=== PATIENT | male | born 1995 | race Caucasian/White ===

== ENCOUNTER 2020-07-14 14:11 | Emergency (ER) | payer OTHER, SELFPAY ==
[2020-07-14 14:19] VITALS: BP 150/82; PULSE 91; RESP 18; TEMP 37.3; O2SAT 98; BMI 29.5
--- NOTE | 2020-07-14 15:00 | W.ED.DENTAL ---
HPI - Dental/Oral General: Chief complaint: Dental/Oral Stated complaint: tooth infection/getting closer to eye. Time Seen by Provider: 07/14/20 14:31 History of Present Illness: HPI Narrative: 25-year-old male presents to the emergency room complaining of jaw pain. He seen a dentist yesterday was started on antibiotics. Is a low-grade fever on arrival here he got lightheaded and dizzy and had near syncopal episode this morning. No vomiting or diarrhea. MD Complaint: tooth pain Onset (ago): hour(s) Duration: constant Severity: mild Exacerbating factors: nothing Context: history of dental caries Associated symptoms: Reports fever(s) (Low-grade 991 here in the ER); Denies ear or mastoid pain Treatment prior to arrival: none Review of Systems Const: Reports: fever(s) (Low-grade 991 here in the ER) ENMT: Denies: ear or mastoid pain Card: Denies: chest pain, edema, dyspnea on exertion or orthopnea Resp: Denies: dyspnea, productive cough or non-productive cough GI: Denies: abdominal pain, nausea, vomiting, hematemesis, coffee ground emesis, diarrhea, constipation, bloating, hematochezia or melena : Denies: flank pain, dysuria, urinary frequency or urinary urgency Skin/Breast: Denies: rash or pruritus Physical Exam Const: COMMON NORMALS: no acute distress GENERAL APPEARANCE: cooperative and comfortable ORIENTATION/CONSCIOUSNESS: Yes awake, Yes oriented to person, Yes oriented to place and Yes oriented to time HENMT: COMMON NORMALS: normocephalic, atraumatic and hearing grossly normal bilaterally HEAD & SCALP: normocephalic and atraumatic Neck/C-Spine: COMMON NORMALS: no JVD Resp: COMMON NORMALS: normal respiratory effort, No retractions, No use of accessory muscles and clear to auscultation bilaterally AUSCULTATION: clear to auscultation bilaterally Cardio: COMMON NORMALS: no JVD, regular rate, regular rhythm and No murmurs present (Cardio) RATE: regular rate RHYTHM: regular rhythm GI: COMMON NORMALS: Soft to palpation and No hepatosplenomegaly present AUSCULTATION: Yes normoactive bowel sounds PALPATION: Yes Soft to palpation, No Tenderness to palpation present (GI), No Guarding due to palpation present (GI) and Yes No hepatosplenomegaly present Extremity: COMMON NORMALS: normal to inspection, capillary refill normal, no clubbing, cyanosis or edema, no calf tenderness and no pedal edema Neuro: SENSORIUM/ORIENTATION: Yes oriented to person, Yes oriented to place and Yes oriented to time Skin: COMMON NORMALS: no rashes or lesions noted GENERAL SKIN EXAM: no rashes or lesions noted Course Vital Signs: Vital signs: Vital Signs Temperature 99.1 F 07/14/20 14:19 Pulse Rate 98 07/14/20 15:59 Respiratory Rate 18 07/14/20 15:59 Blood Pressure 125/74 07/14/20 15:59 Pulse Oximetry 98 07/14/20 15:59 MDM - Dental/Oral MDM Narrative: Medical decision making narrative: No difficulty with swallowing or speaking. He was started on Augmentin and Flagyl I recommend that he stop the Flagyl. Continue the Augmentin. Discussed with patient was started on antibiotic refer to dentistry as soon as able. Worsening return to the emergency room. Lab Data: Labs: Lab Results 07/14/20 07/14/20 Range/Units 14:58 14:58 WBC 12.7 H (4.0-10.0) 10^3/ uL RBC 4.68 (4.1-5.3) 10^6/u L Hgb 13.6 (11.7-16.6) g/dL Hct 40.7 L (42.0-52.0) % MCV 87.0 (80-94) fL MCH 29.1 (28.0-34.0) pg MCHC 33.4 (30.0-36.0) g/dL RDW 11.9 L (12.1-15.1) % Plt Count 264 (130-400) 10^3/c mm MPV 10.2 (7.4-10.4) fL Neut % (Auto) 67.2 % Lymph % (Auto) 21.2 % Haakon % (Auto) 9.7 % Eos % (Auto) 1.3 % Baso % (Auto) 0.2 % Neut # (Auto) 8.52 H (1.8-7.7) 10^3/u L Lymph # (Auto) 2.7 (0.8-4.8) 10^3/u L Haakon # (Auto) 1.2 H (0.2-0.9) 10^3/u L Eos # (Auto) 0.2 (0.0-0.8) 10^3/u L Baso # (Auto) 0.0 (0.0-0.1) 10^3/u L Nucleated RBC % (a uto) 0 % Nucleated RBCs # 0.0 /100WBC Sodium 136 (136-145) mmol/L Potassium 4.0 (3.5-5.1) mmol/L Chloride 100 (98-107) mmol/L Carbon Dioxide 26 (22-29) mmol/L Anion Gap 14.0 (5-19) BUN 11 (6-20) mg/dL Creatinine 0.8 (0.7-1.2) mg/dL GFR Calculation 116.9 (90-130) mL/min Glucose 87 (65-115) mg/dL Calculated Osmolal ity 281 L (285-295) mOsm/k g Calcium 9.0 (8.5-10.5) mg/dL Discharge Plan Discharge Patient Disposition: Home Clinical Impression: Dental caries Condition: Stable Discharge Orders: Discharge ED (Routine); Ordered 07/14/20 Ordered By: Neil Montoya Referrals: Cliff Dumont MD [Primary Care Provider] - Discharge Diet: Soft Mechanical Discharge Activity: Resume usual activity Activity Restrictions/Additional Instructions: Recommend holding Flagyl. Continue other medications Coding Level of Care Code ED [employer] Teacher for Chg Fwd Exam Comprehensive
[2020-07-14] MEDS: ondansetron 2 mg/ML SDV 2 mL 4 MG IVP (15:07)
[2020-07-14] MEDS: sodium chloride 0.9% 1,000 ML 999 ML IV (15:08)
[2020-07-14 15:20] LABS: Basophils % 0.2 %; Eosinophils # 0.2 10^3/uL (0.0-0.8); Eosinophils % 1.3 %; Hematocrit 40.7 % (42.0-52.0); Hemoglobin 13.6 g/dL (11.7-16.6); Lymphocytes # 2.7 10^3/uL (0.8-4.8); Lymphocytes % 21.2 %; Mean Corpuscular HGB Conc 33.4 g/dL (30.0-36.0); Mean Corpuscular Hemoglobin 29.1 pg (28.0-34.0); Mean Platelet Volume 10.2 fL (7.4-10.4); Monocytes # 1.2 10^3/uL (0.2-0.9); Monocytes % 9.7 %; Neutrophils # 8.52 10^3/uL (1.8-7.7); Neutrophils % 67.2 %; Nucleated Red Blood Cells % 0 %; Platelet Count 264 10^3/cmm (130-400); Red Blood Count 4.68 10^6/uL (4.1-5.3); Red Cell Distribution Width 11.9 % (12.1-15.1); White Blood Count 12.7 10^3/uL (4.0-10.0)
[2020-07-14 15:29] LABS: Blood Urea Nitrogen 11 mg/dL (6-20); Carbon Dioxide 26 mmol/L (22-29); Chloride 100 mmol/L (98-107); Glomerular Filtration Rate 116.9 mL/min (90-130); Glucose 87 mg/dL (65-115); Osmolality Calculated 281 mOsm/kg (285-295); Sodium 136 mmol/L (136-145)
[2020-07-14 15:59] VITALS: BP 125/74; PULSE 98; RESP 18; O2SAT 98
== END 2020-07-14 16:02 | disposition home or self-care (01) ==
PROVIDERS: Emergency Provider Family Medicine; PCP Internal Medicine
DX: K02.9 Dental caries, unspecified (principal)
CPT/HCPCS: 80048; 85025; 96361; 96374; 99281; 99283; J2405; J7030